=== PATIENT | female | born 1985 | race Caucasian/White ===

== ENCOUNTER 2017-02-26 06:55 | Day surgery (SDC) | payer MEDICARE ==
[~2017-02-26 06:55] MED LIST: ABILIFY15 M1 PO; ABILIFY20 MG PO; ABILIFY30 MG PO; ABILIFY5 MG PO; AMBIEN5 MG PO; AMOXICILLIN500 MG PO; ANAPROX DS550 M1 PO; ANUSOL HC25 MG/SUPP PR; ATIVAN1 M2 PO; BACLOFEN10 M1 PO; BACTRIM DS TAB1 EAC2 PO; BELSOMRA10 MG PO; CATAFLAM50 MG PO; CITALOPRAM HBR40 M1 PO; CITRATE OF MAG296 ML PO; CLONAZEPAM2 M1 PO; CLONAZEPAM2 MG PO; COLACE100 MG PO; DARVOCET-N 1001 TAB PO; DEPAKOTE250 M1 PO; DOXYCYCLINE HY100 M3 PO; EC-NAPROSYN375 MG PO; FLAGYL500 M1 PO; FLEXERIL; FLEXERIL 10MG PO; FLEXERIL10 MG PO; IBUPROFEN800 MG PO; KLONOPIN1 M1 PO; KLONOPIN1 MG PO; KLONOPIN2 MG PO; LAMICTAL100 M2 PO; LAMICTAL150 MG PO; LAMICTAL200 M2 PO; LAMICTAL200 MG PO; LATUDA20 MG PO; LEXAPRO10 M1 PO; LEXAPRO10 MG PO; LEXAPRO20 M2 PO; LEXAPRO20 MG PO; LIDODERM30 EA TP; LITHIUM CARBON300 MG PO; LORTAB 5-500 T1 EAC1 PO; MAGNESIUM PO; METAXALONE800 MG PO; METRONIDAZOLE500 M3 PO; MINIPRESS2 M1 PO; MOBIC15 MG PO; NORCO 5-325 TA1 EACH PO; NORCO 5/325 TAB1 TAB PO; NORCO 5/3251 TAB NG; PERCOCET 5-3251 EACH PO; PRAZOSIN HCL1 M2 PO; PRENATAL1 EACH PO; PROCARDIA10 MG PO; PROMETHAZINE HC25 M3 PO; RESTORIL30 M1 PO; REXULTI2 MG PO; RITALIN LA10 M1 PO; RITALIN PO; RITALIN20 M1 PO; SEROQUEL200 M1 PO; STOOL SOFTENER100 MG PO; SUBOXONE PO; SUPER B COMPLE150 M1 PO; Suboxone 8 Mg-2 Mg T PO; TEMAZEPAM30 M1 PO; TOPAMAX100 MG PO; TOPAMAX50 M3 PO; TRAMADOL HCL50 M2 PO; TRAMADOL HCL50 MG PO; TRAZODONE HCL50 M1 PO; TYLENOL PM EX-1 EACH PO; ULTRAM50 M1 PO; ULTRAM50 MG PO; VALIUM10 M1 PO; VALIUM5 MG PO; VIIBRYD20 M1 PO; VITAMIN D35000 UNI2 PO; VITAMIN D35000 UNI3 PO; VYVANSE30 M1 PO; VYVANSE60 M1 PO; XANAX0.5 MG PO; XANAX1 M1 PO; ZOFRAN ODT4 MG/UDTAB PO; ZYPREXA5 M1 PO; ZYPREXA7.5 M1 PO
[2017-02-26] MEDS ORDERED: PERCOCET 5-3251 EACH PO (17:34)
[2017-05-16] MEDS ORDERED: RITALIN20 M1 PO (14:16)
[2017-05-16] MEDS ORDERED: NORCO 5-325 TA1 EACH PO (16:56)
[2017-07-10] MEDS ORDERED: MAGNESIUM OXID400 M1 PO (15:21)
[2017-07-10] MEDS ORDERED: VENTOLIN HFA18 G2 PO (15:22)
[2017-07-10] MEDS ORDERED: LEXAPRO20 M2 PO (15:25)
[2017-08-12] MEDS ORDERED: FLAGYL500 M1 PO (08:33)
[2017-08-12] MEDS ORDERED: PERCOCET 5-3251 EACH PO (12:36)
[2017-08-12] MEDS ORDERED: COMPAZINE10 MG PO (12:36)
== END 2017-02-26 18:35 ==
LOC: WSU 06:55 → SHSB 06:59 → ORW 08:57 → PACU 10:07 → OBGF 11:54
PROC: 0UT94ZZ Resection of Uterus, Percutaneous Endoscopic Approach (ICD-10-PCS; principal; 2017-02-26)
PROC: 0UTC4ZZ Resection of Cervix, Percutaneous Endoscopic Approach (ICD-10-PCS; 2017-02-26)
PROC: 0UB74ZZ Excision of Bilateral Fallopian Tubes, Percutaneous Endoscopic Approach (ICD-10-PCS; 2017-02-26)
DX: N72 Inflammatory disease of cervix uteri (principal); N88.8 Other specified noninflammatory disorders of cervix uteri; N84.1 Polyp of cervix uteri; N80.0 Endometriosis of uterus; D64.9 Anemia, unspecified; Z79.899 Other long term (current) drug therapy; Z88.6 Allergy status to analgesic agent
CPT/HCPCS: J0690; J1170; J2250; J3010; J7030; J7121